=== PATIENT | male | born 1960 | race Two or more races ===

== ENCOUNTER 2018-09-23 13:48 | Inpatient (IN) | payer OTHER ==
[~2018-09-23] VITALS: Ht 175.3 cm; Wt 102.1 kg
[2018-10-03] MEDS ORDERED: FAMOTIDINE20 MG PO (14:39)
[2018-10-03] MEDS ORDERED: OXYC1TAB9 PO (14:39)
[2018-10-03] MEDS ORDERED: AVAPRO300 MG PO (14:39)
[2018-10-03] MEDS ORDERED: PANTOPRAZOLE SO40 MG PO (14:39)
[2018-10-03] MEDS ORDERED: GABAPENTIN800 MG PO (14:39)
== END 2018-10-03 20:28 | disposition home or self-care (01) | DRG 863 ==
LOC: SURG 13:48 → MEDI 09-30 00:27
PROVIDERS: ADMIT Orthopaedic Surgery
PROC: BP38ZZZ Magnetic Resonance Imaging (MRI) of Right Shoulder (ICD-10-PCS; 2018-09-24)
PROC: 0R9J3ZZ Drainage of Right Shoulder Joint, Percutaneous Approach (ICD-10-PCS; principal; 2018-09-28)
PROC: 02HV33Z Insertion of Infusion Device into Superior Vena Cava, Percutaneous Approach (ICD-10-PCS; 2018-10-01)
DX: T81.41XA Infection following a procedure, superficial incisional surgical site, initial encounter (principal); T84.59XA Infection and inflammatory reaction due to other internal joint prosthesis, initial encounter; M00.811 Arthritis due to other bacteria, right shoulder; I10 Essential (primary) hypertension; E03.8 Other specified hypothyroidism; J45.998 Other asthma; G47.33 Obstructive sleep apnea (adult) (pediatric); N40.0 Benign prostatic hyperplasia without lower urinary tract symptoms
CPT/HCPCS: 73218